=== PATIENT | female | born 1965 | race Caucasian/White ===

== ENCOUNTER 2019-10-01 12:59 | Inpatient (IN) ==
[2019-10-01] MEDS ORDERED: GLUCAGON 1 MG VIAL IM PRN (14:54)
[2019-10-01] MEDS ORDERED: DEXTROSE 10% 250 ML BAG IV PRN ×2 (14:54→20:50)
[2019-10-01] MEDS ORDERED: SODIUM CHLORIDE 0.9% 1,000 ML IV SCH (15:00)
[2019-10-01 15:31] LABS: Basophils # 0.1 10*3/uL (0.0-0.2); Basophils % 1.2 % (0.0-0.8); Eosinophils # 0.1 10*3/uL (0.0-0.87); Hematocrit 37.8 VOL% (35.7-47.0); Hemoglobin 12.7 GM/DL (12.0-16.0); Immature Granulocytes % 0.3 %; Immature Granulocytes Absolute 0.02 #; Lymphocytes # 1.7 10*3/uL (1.4-4.0); Lymphocytes % 29.7 % (21.3-54.2); Mean Corpuscular HGB Conc 33.6 GM/DL (32-36); Mean Corpuscular Volume 99.5 FL (87-102); Mean Platelet Volume 9.6 FL (9.6-12.0); Monocytes % 6.3 % (1.7-12.7); Neutrophils % 61.5 % (38.7-73.9); Platelet Count 185 T/CUMM (130-400); Red Cell Distribution Width 13.2 % (9.3-17.3); White Blood Count 5.8 T/CUMM (4-12)
[2019-10-01 16:01] LABS: Alanine Aminotransferase 29 U/L (13-56); Albumin 2.8 G/DL (3.4-5.0); Alkaline Phosphatase 100 U/L (45-117); Aspartate Amino Transferase 22 U/L (0-37); Bilirubin,Total < 0.39 MG/DL (0.2-1.0); Blood Urea Nitrogen 18 MG/DL (7-18); Calcium 8.3 MG/DL (8.5-10.1); Estimated Glom Filtration Rate 62 ML/MIN; Glucose 253 MG/DL (74-106); Osmolality,Calculated 280.1 MOS/KG (273-304); Total Protein 6.9 G/DL (6.4-8.3)
[2019-10-01 16:05] LABS: ABG Base Excess -1.1 MMOL/L (-2.5-2.5); ABG HCO3 21.2 MMOL/L (20-26); ABG Oxygen Saturation 97.8 % (95-100); ABG PCO2 29.1 MM HG (35-48); ABG PH 7.481 (7.35-7.45); ABG PO2 107.3 MM HG (80-95); ABG TCO2 22.1 MMOL/L (23-27); Allen Test Positive; Pt O2 Delivery Device Room Air
[2019-10-01] MEDS: CHLORHEXIDINE 4% SOLN 118 ML BOTTLE TOP SCH (16:24)
[2019-10-01] MEDS: INSULIN REGULAR 100 UNIT/ML SUBCUT SCH (21:24)
[2019-10-01] MEDS: CHLORHEXIDINE 0.12% ORAL RINSE 60 ML BOTTLE SWISH/SPIT SCH (21:25)
[2019-10-01] MEDS ORDERED: ACETAMINOPHEN/CODEINE 300-30 MG TABLET PO PRN (23:24)
[2019-10-02] MEDS: CHLORHEXIDINE 4% SOLN 118 ML BOTTLE TOP SCH ×4 (00:50→21:19)
[2019-10-02] MEDS: INSULIN REGULAR 100 UNIT/ML SUBCUT SCH ×4 (08:23→21:19)
[2019-10-02] MEDS ORDERED: GABAPENTIN 600 MG TABLET PO PRN (08:25)
[2019-10-02] MEDS: ASPIRIN EC 81 MG TABLET PO SCH (09:17)
[2019-10-02] MEDS: PANTOPRAZOLE 40 MG TABLET PO SCH (09:18)
[2019-10-02] MEDS: CHLORHEXIDINE 0.12% ORAL RINSE 60 ML BOTTLE SWISH/SPIT SCH ×2 (09:18→21:19)
[2019-10-02] MEDS: ISOSORBIDE MONONITRATE 30 MG TABLET PO SCH (09:18)
[2019-10-02] MEDS: oxyCODONE/ACETAMINOPHEN 5-325 MG TABLET PO PRN ×2 (12:25→22:26)
[2019-10-02] MEDS ORDERED: SODIUM CHLORIDE 0.9% 1,000 ML IV SCH (15:00)
[2019-10-03] MEDS ORDERED: VANCOMYCIN 1,000 MG VIAL ONE (04:20)
[2019-10-03] MEDS ORDERED: PAPAVERINE 60 MG/2 ML VIAL ONE (04:20)
[2019-10-03] MEDS ORDERED: VANCOMYCIN 500 MG VIAL ONE (04:20)
[2019-10-03] MEDS ORDERED: HEPARIN/NACL 0.9% 2 UNITS/ML 500 ML IV ONE (05:58)
[2019-10-03] MEDS ORDERED: PANTOPRAZOLE 40 MG TABLET PO ONE (06:00)
[2019-10-03] MEDS ORDERED: CEFUROXIME INJ 1,500 MG in SYRINGE 1 EACH IV ONE (06:00)
[2019-10-03] MEDS ORDERED: DIAZEPAM 5 MG TABLET PO ONE (06:00)
[2019-10-03 07:53] LABS: ABG Base Excess -1.5 MMOL/L (-2.5-2.5); ABG HCO3 23.2 MMOL/L (20-26); ABG Oxygen Saturation 99.6 % (95-100); ABG PCO2 58.3 MM HG (35-48); ABG PH 7.268 (7.35-7.45); ABG TCO2 24.1 MMOL/L (23-27); Glucose Heart Surgery 215 MG/DL (74-106); Hematocrit Heart Surgery 35.9 PERCENT (37-47); Hemoglobin Heart Surgery 11.7 G/DL (12.0-16.0); PCO2 Patient Temp Arterial 58.3 MMHG; PH Patient Temp Arterial 7.268; Patient Temperature 37 CELCIUS; Potassium Heart/CVR 3.7 MMOL/L (3.5-5.1); Sodium Heart/CVR 136 MMOL/L (135-145)
[2019-10-03 07:59] LABS: Apearance,Urine CLEAR (Clear); Bilirubin,Urine Negative (Negative); Blood, Urine Small mg/dL (Negative); Glucose,Urine (UA) Negative (Negative); Ketones,Urine Negative (Negative); Nitrite,Urine Negative (Negative); Protein,Urine Negative; RBC,Urine 1 /HPF (0-4); Squamous Epithelial Cell,Urine Occasional /HPF (0-10); Urine Color Straw (Yellow); Urine Specific Gravity 1.004 (1.001-1.035); Urine Urobilinogen < 2.0 EU/DL (0.2-1.0); WBC,Urine <1 /HPF (0-6)
[2019-10-03] MEDS ORDERED: SUFentanil 50 MCG/ML AMP ONE (08:50)
[2019-10-03 09:21] LABS: Hematocrit Heart Surgery 22.2 PERCENT (37-47); Hemoglobin Heart Surgery 7.1 G/DL (12.0-16.0); PCO2 Patient Temp Venous 36.3 MM HG; PH Patient Temp Venous 7.436; PO2 Patient Temp Venous 34.5 MM HG; VBG Base Excess 0.6 MEQ/L (0-4); VBG HCO3 24.8 MEQ/L (24-28); VBG Oxygen Saturation 79.9 %; VBG PCO2 41.9 MMHG (41-51); VBG PH 7.393; VBG PO2 42.4 MMHG (17-40)
[2019-10-03] MEDS ORDERED: NITROGLYCERIN DRIP 50 MG/250 ML BOTTLE IV ONE ×2 (09:23→12:52)
[2019-10-03] MEDS ORDERED: POTASSIUM CHLORIDE RIDER 100 ML IV ONE (09:23)
[2019-10-03] MEDS ORDERED: SODIUM BICARBONATE 50 MEQ/50 ML VIAL IV ONE ×2 (09:23→11:05)
[2019-10-03] MEDS ORDERED: PHENYLEPHRINE DRIP 40 MG/250 ML PREMIX IV ONE (09:23)
[2019-10-03] MEDS ORDERED: ALBUMIN 5% 12.5 GM/250 ML VIAL IV ONE (09:24)
[2019-10-03 09:54] LABS: Hematocrit Heart Surgery 24.1 PERCENT (37-47); Hemoglobin Heart Surgery 7.7 G/DL (12.0-16.0); PCO2 Patient Temp Venous 34.4 MM HG; PH Patient Temp Venous 7.46; PO2 Patient Temp Venous 36.3 MM HG; Potassium Heart/CVR 4.7 MMOL/L (3.5-5.1); VBG HCO3 25.2 MEQ/L (24-28); VBG Oxygen Saturation 82.5 %; VBG PCO2 39.8 MMHG (41-51); VBG PH 7.416; VBG PO2 44.6 MMHG (17-40)
[2019-10-03] MEDS ORDERED: diphenhydrAMINE 50 MG/1 ML VIAL ONE (10:00)
[2019-10-03] MEDS ORDERED: FAMOTIDINE 20 MG/2 ML VIAL IV ONE (10:01)
[2019-10-03] MEDS ORDERED: EPINEPHrine 1 MG/10 ML SYRINGE ONE (10:08)
[2019-10-03 10:25] LABS: Hematocrit Heart Surgery 25.6 PERCENT (37-47); Hemoglobin Heart Surgery 8.2 G/DL (12.0-16.0); PCO2 Patient Temp Venous 36.8 MM HG; PH Patient Temp Venous 7.428; PO2 Patient Temp Venous 32.3 MM HG; Potassium Heart/CVR 4.6 MMOL/L (3.5-5.1); VBG Base Excess 0.2 MEQ/L (0-4); VBG HCO3 24.2 MEQ/L (24-28); VBG Oxygen Saturation 68.2 %; VBG PCO2 38.6 MMHG (41-51); VBG PH 7.413; VBG PO2 34.7 MMHG (17-40)
[2019-10-03] MEDS ORDERED: THROMBIN TOPICAL (RECOMBINANT) 5,000 UNIT VIAL TOP ONE (10:40)
[2019-10-03] MEDS ORDERED: MANNITOL 100 GM/500 ML BAG IV ONE (11:04)
[2019-10-03] MEDS ORDERED: FUROSEMIDE 20 MG/2 ML VIAL ONE (11:05)
[2019-10-03] MEDS ORDERED: PROTAMINE SULFATE 250 MG/25 ML VIAL IV ONE (11:05)
[2019-10-03] MEDS ORDERED: LIDOCAINE 2% 5 ML VIAL ONE ×2 (11:05→12:50)
[2019-10-03] MEDS ORDERED: MAGNESIUM SULFATE 5 GM/10 ML VIAL IV ONE (11:05)
[2019-10-03] MEDS ORDERED: DEXTROSE 5% KCL 20 MEQ 20 MEQ/1,000 ML BAG IV ONE (11:05)
[2019-10-03] MEDS ORDERED: methylPREDNISolone SOD SUC 1,000 MG/8 ML VIAL ONE (11:05)
[2019-10-03] MEDS ORDERED: HEPARIN 10,000 UNIT/10 ML VIAL ONE (11:05)
[2019-10-03] MEDS ORDERED: ALBUMIN 25% 25 GM/100 ML VIAL IV ONE (11:05)
[2019-10-03 11:14] LABS: ABG HCO3 21.9 MMOL/L (20-26); ABG Oxygen Saturation 99.3 % (95-100); ABG PCO2 44.9 MM HG (35-48); ABG PH 7.319 (7.35-7.45); ABG TCO2 21.5 MMOL/L (23-27); Glucose Heart Surgery 204 MG/DL (74-106); Hematocrit Heart Surgery 27.4 PERCENT (37-47); Hemoglobin Heart Surgery 8.8 G/DL (12.0-16.0); Ionized Calcium Arterial 1.26 MMOL/L (1.21-1.46); PCO2 Patient Temp Arterial 44.9 MMHG; PH Patient Temp Arterial 7.319; Patient Temperature 37 CELCIUS; Potassium Heart/CVR 3.8 MMOL/L (3.5-5.1); Sodium Heart/CVR 133 MMOL/L (135-145)
[2019-10-03] MEDS: ASPIRIN EC 81 MG TABLET PO SCH (11:43)
[2019-10-03] MEDS: CHLORHEXIDINE 4% SOLN 118 ML BOTTLE TOP SCH (11:43)
[2019-10-03] MEDS: INSULIN REGULAR 100 UNIT/ML SUBCUT SCH (11:43)
[2019-10-03] MEDS: PANTOPRAZOLE 40 MG TABLET PO SCH (11:44)
[2019-10-03] MEDS: ISOSORBIDE MONONITRATE 30 MG TABLET PO SCH (11:44)
[2019-10-03] MEDS: CHLORHEXIDINE 0.12% ORAL RINSE 60 ML BOTTLE SWISH/SPIT SCH ×2 (11:44→21:17)
[2019-10-03] MEDS ORDERED: ONDANSETRON 4 MG/2 ML VIAL IV PRN (12:24)
[2019-10-03] MEDS ORDERED: CALCIUM CHLORIDE 1,000 MG/10 ML SYRINGE IV PRN (12:24)
[2019-10-03] MEDS ORDERED: INSULIN REGULAR 100 UNIT/ML IV PRN (12:24)
[2019-10-03] MEDS ORDERED: MAGNESIUM SULF RIDER 4 GM in PREMIX 1 EACH IV PRN (12:24)
[2019-10-03] MEDS ORDERED: ACETAMINOPHEN 650 MG SUPP RECTAL PRN (12:24)
[2019-10-03] MEDS ORDERED: NITROPRUSSIDE 100 MG in DEXTROSE 5% 250 ML IV PRN (12:24)
[2019-10-03] MEDS ORDERED: MIDAZOLAM 10 MG/2 ML VIAL IV PRN (12:24)
[2019-10-03] MEDS ORDERED: CHLORHEXIDINE 4% SOLN 118 ML BOTTLE TOP PRN (12:24)
[2019-10-03] MEDS ORDERED: VECURONIUM 10 MG VIAL IV PRN ×2 (12:24)
[2019-10-03] MEDS ORDERED: INSULIN REGULAR 100 UNIT/ML IV ONE (12:24)
[2019-10-03] MEDS ORDERED: MAGNESIUM SULF RIDER 2 GM in PREMIX 1 EACH IV PRN (12:24)
[2019-10-03] MEDS ORDERED: MORPHINE 10 MG/1 ML VIAL IV PRN (12:24)
[2019-10-03] MEDS ORDERED: PROTAMINE SULFATE 50 MG/5 ML VIAL IV ONE (12:27)
[2019-10-03 12:40] LABS: ABG Base Excess 0.2 MMOL/L (-2.5-2.5); ABG HCO3 24.6 MMOL/L (20-26); ABG Oxygen Saturation 99.1 % (95-100); ABG PCO2 51.4 MM HG (35-48); ABG PH 7.324 (7.35-7.45); ABG TCO2 24.8 MMOL/L (23-27); Glucose Heart Surgery 188 MG/DL (74-106); Hematocrit Heart Surgery 27.8 PERCENT (37-47); Potassium Heart/CVR 3.6 MMOL/L (3.5-5.1)
[2019-10-03 12:42] LABS: Basophils % 0.6 % (0.0-0.8); Eosinophils # 0.1 10*3/uL (0.0-0.87); Eosinophils % 1.1 % (0.00-10.9); Hemoglobin 8.7 GM/DL (12.0-16.0); Immature Granulocytes % 0.9 %; Immature Granulocytes Absolute 0.06 #; Lymphocytes # 1.1 10*3/uL (1.4-4.0); Lymphocytes % 15.2 % (21.3-54.2); Mean Corpuscular HGB Conc 33.5 GM/DL (32-36); Mean Corpuscular Volume 99.2 FL (87-102); Mean Platelet Volume 9.6 FL (9.6-12.0); Monocytes % 4.5 % (1.7-12.7); Neutrophils % 77.7 % (38.7-73.9); Platelet Count 119 T/CUMM (130-400); Red Blood Count 2.62 MC/CUMM (3.8-5.5); Red Cell Distribution Width 13.2 % (9.3-17.3); White Blood Count 7.1 T/CUMM (4-12)
[2019-10-03] MEDS ORDERED: CALCIUM CHLORIDE 1,000 MG/10 ML VIAL IV ONE (12:50)
[2019-10-03] MEDS ORDERED: PHENYLEPHRINE DRIP 20 MG/250 ML PREMIX IV ONE (12:50)
[2019-10-03] MEDS ORDERED: SEVOFLURANE 1 UNIT/15 MINUTE INH ONE (12:50)
[2019-10-03] MEDS ORDERED: ePHEDrine 50 MG/ML AMP ONE (12:51)
[2019-10-03] MEDS ORDERED: SUFentanil 250 MCG/5 ML AMP ONE (12:51)
[2019-10-03] MEDS ORDERED: ETOMIDATE 40 MG/20 ML VIAL IV ONE (12:52)
[2019-10-03] MEDS ORDERED: SODIUM CHLORIDE 0.9% 250 ML IV ONE (12:52)
[2019-10-03] MEDS ORDERED: SODIUM CHLORIDE 0.9% 100 ML IV ONE (12:52)
[2019-10-03] MEDS ORDERED: SODIUM CHLORIDE 0.9% 2,000 ML IV ONE (12:52)
[2019-10-03] MEDS ORDERED: AMINOCAPROIC ACID 5,000 MG/20 ML VIAL ONE (12:52)
[2019-10-03] MEDS ORDERED: DEXTROSE 10% 250 ML BAG IV PRN ×2 (12:53)
[2019-10-03] MEDS: SODIUM CHLORIDE 0.45% 1,000 ML IV SCH ×2 (12:57→13:06)
[2019-10-03] MEDS: PHENYLEPHRINE DRIP 40 MG/250 ML PREMIX IV PRN (12:59)
[2019-10-03] MEDS: POTASSIUM CHLORIDE RIDER 20 MEQ in PREMIX 1 EACH IV PRN ×2 (12:59→14:29)
[2019-10-03 13:07] LABS: INR 1.3; Partial Thromboplastin Time 28.9 SECS (20.8-36.0)
[2019-10-03 13:13] LABS: CKMB % 7.1 %
[2019-10-03] MEDS: ALBUMIN 5% 12.5 GM in PREMIX 1 EACH IV PRN ×4 (13:14→18:59)
[2019-10-03] MEDS: LACTATED RINGERS 250 ML IV PRN ×5 (13:15→17:17)
[2019-10-03 13:16] LABS: Troponin I 4.56 NG/ML (0.00-0.045)
[2019-10-03 13:18] LABS: Albumin 2.4 G/DL (3.4-5.0); Bilirubin,Total 1.2 MG/DL (0.2-1.0); Calcium 7.7 MG/DL (8.5-10.1); Osmolality,Calculated 288.1 MOS/KG (273-304); Total Protein 5.1 G/DL (6.4-8.3)
[2019-10-03] MEDS: INSULIN REGULAR DRIP 100 ML IV SCH (13:20)
[2019-10-03] MEDS: POTASSIUM CHLORIDE RIDER 10 MEQ in PREMIX 1 EACH IV PRN ×2 (13:21→15:14)
[2019-10-03 14:20] LABS: ABG Base Excess -1.9 MMOL/L (-2.5-2.5); ABG HCO3 22.8 MMOL/L (20-26); ABG Oxygen Saturation 99.2 % (95-100); ABG PCO2 42.5 MM HG (35-48); ABG PH 7.352 (7.35-7.45); Glucose Heart Surgery 193 MG/DL (74-106); Hematocrit Heart Surgery 26.1 PERCENT (37-47); Hemoglobin Heart Surgery 8.4 G/DL (12.0-16.0); Potassium Heart/CVR 3.8 MMOL/L (3.5-5.1)
[2019-10-03 15:48] LABS: ABG Base Excess -2.7 MMOL/L (-2.5-2.5); ABG HCO3 22.2 MMOL/L (20-26); ABG Oxygen Saturation 99.2 % (95-100); ABG PCO2 41.8 MM HG (35-48); ABG PH 7.346 (7.35-7.45); Glucose Heart Surgery 167 MG/DL (74-106); Hematocrit Heart Surgery 29.9 PERCENT (37-47); Hemoglobin Heart Surgery 9.7 G/DL (12.0-16.0); Potassium Heart/CVR 4.5 MMOL/L (3.5-5.1)
[2019-10-03] MEDS: MIDAZOLAM 2 MG/2 ML VIAL IV PRN ×2 (15:57→16:23)
[2019-10-03 17:46] LABS: ABG Base Excess -1.2 MMOL/L (-2.5-2.5); ABG HCO3 23.4 MMOL/L (20-26); ABG PCO2 44.5 MM HG (35-48); ABG PO2 87.5 MM HG (80-95); ABG TCO2 22.2 MMOL/L (23-27); Glucose Heart Surgery 152 MG/DL (74-106); Hematocrit Heart Surgery 34.6 PERCENT (37-47); Hemoglobin Heart Surgery 11.2 G/DL (12.0-16.0); Potassium Heart/CVR 4.3 MMOL/L (3.5-5.1)
[2019-10-03] MEDS: KETOROLAC 30 MG/1 ML VIAL IV SCH (20:27)
[2019-10-03 20:29] LABS: ABG Base Excess -1.1 MMOL/L (-2.5-2.5); ABG HCO3 23.5 MMOL/L (20-26); ABG Oxygen Saturation 97.4 % (95-100); ABG PCO2 38.9 MM HG (35-48); ABG PH 7.392 (7.35-7.45); ABG PO2 89.3 MM HG (80-95); ABG TCO2 21.2 MMOL/L (23-27); Glucose Heart Surgery 147 MG/DL (74-106); Hematocrit Heart Surgery 33.8 PERCENT (37-47); Hemoglobin Heart Surgery 10.9 G/DL (12.0-16.0); Potassium Heart/CVR 4.2 MMOL/L (3.5-5.1)
[2019-10-03] MEDS: CEFUROXIME INJ 1,500 MG in SYRINGE 1 EACH IV SCH (20:36)
[2019-10-03 21:25] LABS: CKMB % 4.8 %
[2019-10-04 00:16] LABS: ABG Base Excess -1.6 MMOL/L (-2.5-2.5); ABG HCO3 22.3 MMOL/L (20-26); ABG PH 7.423 (7.35-7.45); ABG TCO2 23.4 MMOL/L (23-27); Glucose Heart Surgery 144 MG/DL (74-106); Potassium Heart/CVR 4.4 MMOL/L (3.5-5.1)
[2019-10-04] MEDS: FUROSEMIDE 40 MG/4 ML VIAL IV PRN ×2 (01:11→07:55)
[2019-10-04] MEDS: KETOROLAC 30 MG/1 ML VIAL IV SCH ×3 (01:23→13:32)
[2019-10-04] MEDS: ALBUMIN 5% 12.5 GM in PREMIX 1 EACH IV PRN ×5 (02:00→17:15)
[2019-10-04 03:21] LABS: ABG Base Excess -1.1 MMOL/L (-2.5-2.5); ABG HCO3 23.5 MMOL/L (20-26); ABG Oxygen Saturation 95.8 % (95-100); ABG PCO2 36.4 MM HG (35-48); ABG PH 7.412 (7.35-7.45); ABG PO2 75.3 MM HG (80-95); ABG TCO2 21.4 MMOL/L (23-27); Glucose Heart Surgery 177 MG/DL (74-106); Hematocrit Heart Surgery 27.5 PERCENT (37-47); Hemoglobin Heart Surgery 8.9 G/DL (12.0-16.0); Potassium Heart/CVR 4.1 MMOL/L (3.5-5.1)
[2019-10-04 06:11] LABS: Basophils % 0.1 % (0.0-0.8); Hematocrit 27.2 VOL% (35.7-47.0); Hemoglobin 9.2 GM/DL (12.0-16.0); Immature Granulocytes % 0.7 %; Immature Granulocytes Absolute 0.11 #; Lymphocytes # 1.9 10*3/uL (1.4-4.0); Lymphocytes % 12.7 % (21.3-54.2); Mean Corpuscular HGB Conc 33.8 GM/DL (32-36); Mean Corpuscular Volume 94.1 FL (87-102); Mean Platelet Volume 10.4 FL (9.6-12.0); Monocytes % 6.5 % (1.7-12.7); Platelet Count 134 T/CUMM (130-400); Red Blood Count 2.89 MC/CUMM (3.8-5.5); Red Cell Distribution Width 15.2 % (9.3-17.3); White Blood Count 14.7 T/CUMM (4-12)
[2019-10-04 06:44] LABS: Bilirubin,Direct 0.23 MG/DL (0.0-0.20); Bilirubin,Total 0.7 MG/DL (0.2-1.0); Calcium 7.3 MG/DL (8.5-10.1); Total Protein 4.8 G/DL (6.4-8.3)
[2019-10-04 06:47] LABS: CKMB % 2.8 %
[2019-10-04 06:50] LABS: Troponin I 3.55 NG/ML (0.00-0.045)
[2019-10-04] MEDS: MORPHINE 4 MG/1 ML VIAL IV PRN ×2 (07:09→17:37)
[2019-10-04] MEDS ORDERED: HEPARIN/NACL 0.9% 2 UNITS/ML 500 ML IV ONE (07:32)
[2019-10-04 07:33] LABS: ABG Base Excess -5.5 MMOL/L (-2.5-2.5); ABG HCO3 19.1 MMOL/L (20-26); ABG Oxygen Saturation 98.2 % (95-100); ABG PCO2 33.6 MM HG (35-48); ABG PH 7.372 (7.35-7.45); ABG PO2 164.1 MM HG (80-95); ABG TCO2 20.1 MMOL/L (23-27); Glucose Heart Surgery 185 MG/DL (74-106); Hemoglobin Heart Surgery 8.3 G/DL (12.0-16.0); Potassium Heart/CVR 4.8 MMOL/L (3.5-5.1)
[2019-10-04] MEDS: MIDAZOLAM 2 MG/2 ML VIAL IV PRN ×4 (07:37→15:24)
[2019-10-04 08:20] LABS: ABG Base Excess -4.5 MMOL/L (-2.5-2.5); ABG HCO3 20.4 MMOL/L (20-26); ABG PCO2 36.4 MM HG (35-48); ABG PH 7.367 (7.35-7.45); ABG PO2 81.7 MM HG (80-95); ABG TCO2 21.5 MMOL/L (23-27); Glucose Heart Surgery 182 MG/DL (74-106); Hemoglobin Heart Surgery 7.7 G/DL (12.0-16.0); Potassium Heart/CVR 4.6 MMOL/L (3.5-5.1)
[2019-10-04 08:50] LABS: Hemoglobin Heart Surgery 7.7 G/DL (12.0-16.0); PH Patient Temp Venous 7.253; PO2 Patient Temp Venous 25.4 MM HG; Potassium Heart/CVR 4.6 MMOL/L (3.5-5.1); VBG Base Excess -5.7 MEQ/L (0-4); VBG HCO3 21.2 MEQ/L (24-28); VBG Oxygen Saturation 34.3 %; VBG PH 7.253; VBG PO2 25.4 MMHG (17-40)
[2019-10-04] MEDS: LACTATED RINGERS 250 ML IV PRN ×4 (09:10→15:36)
[2019-10-04] MEDS: PHENYLEPHRINE DRIP 40 MG/250 ML PREMIX IV PRN (09:10)
[2019-10-04] MEDS: CEFUROXIME INJ 1,500 MG in SYRINGE 1 EACH IV SCH ×2 (09:27→21:04)
[2019-10-04] MEDS ORDERED: MIDAZOLAM 10 MG/2 ML VIAL ONE (09:37)
[2019-10-04] MEDS ORDERED: SUFentanil 250 MCG/5 ML AMP ONE (09:37)
[2019-10-04] MEDS ORDERED: VECURONIUM 10 MG VIAL IV ONE (09:37)
[2019-10-04] MEDS ORDERED: PAPAVERINE 60 MG/2 ML VIAL ONE (09:38)
[2019-10-04] MEDS ORDERED: VANCOMYCIN 1,000 MG VIAL ONE (09:38)
[2019-10-04] MEDS: CHLORHEXIDINE 0.12% ORAL RINSE 60 ML BOTTLE SWISH/SPIT SCH ×2 (10:09→20:59)
[2019-10-04 11:46] LABS: ABG Base Excess -5.1 MMOL/L (-2.5-2.5); ABG HCO3 20.2 MMOL/L (20-26); ABG PCO2 38.4 MM HG (35-48); ABG PH 7.332 (7.35-7.45); Glucose Heart Surgery 172 MG/DL (74-106); Hematocrit Heart Surgery 26.2 PERCENT (37-47); Hemoglobin Heart Surgery 8.4 G/DL (12.0-16.0); Potassium Heart/CVR 4.5 MMOL/L (3.5-5.1)
[2019-10-04] MEDS: SODIUM CHLORIDE 0.45% 1,000 ML IV SCH ×3 (13:17→16:48)
[2019-10-04] MEDS ORDERED: SEVOFLURANE 1 UNIT/15 MINUTE INH ONE (13:56)
[2019-10-04] MEDS ORDERED: ePHEDrine 50 MG/ML AMP ONE (13:56)
[2019-10-04] MEDS ORDERED: NITROGLYCERIN DRIP 50 MG/250 ML BOTTLE IV ONE (13:57)
[2019-10-04 14:06] LABS: CKMB % 2.9 %
[2019-10-04 14:07] LABS: Troponin I 3.11 NG/ML (0.00-0.045)
[2019-10-04 14:29] LABS: ABG Base Excess -3.7 MMOL/L (-2.5-2.5); ABG HCO3 21.3 MMOL/L (20-26); ABG Oxygen Saturation 97.6 % (95-100); ABG PCO2 42.9 MM HG (35-48); ABG PH 7.323 (7.35-7.45); ABG TCO2 20.3 MMOL/L (23-27); Glucose Heart Surgery 131 MG/DL (74-106); Hematocrit Heart Surgery 32.2 PERCENT (37-47); Hemoglobin Heart Surgery 10.4 G/DL (12.0-16.0); Potassium Heart/CVR 4.1 MMOL/L (3.5-5.1)
[2019-10-04] MEDS: POTASSIUM CHLORIDE RIDER 20 MEQ in PREMIX 1 EACH IV PRN (14:55)
[2019-10-04] MEDS ORDERED: FUROSEMIDE 40 MG/4 ML VIAL IV ONE (16:31)
[2019-10-04] MEDS: INSULIN REGULAR DRIP 100 ML IV SCH (16:32)
[2019-10-04 17:16] LABS: ABG Base Excess -2.8 MMOL/L (-2.5-2.5); ABG HCO3 22.1 MMOL/L (20-26); ABG Oxygen Saturation 99.7 % (95-100); ABG TCO2 20.6 MMOL/L (23-27); Glucose Heart Surgery 113 MG/DL (74-106); Hematocrit Heart Surgery 32.2 PERCENT (37-47); Hemoglobin Heart Surgery 10.4 G/DL (12.0-16.0); Potassium Heart/CVR 4.5 MMOL/L (3.5-5.1)
[2019-10-04] MEDS ORDERED: GLUCAGON 1 MG VIAL IM PRN (20:00)
[2019-10-04] MEDS ORDERED: DEXTROSE 50% 25 GM/50 ML SYRINGE IV PRN (20:00)
[2019-10-04 20:10] LABS: ABG Base Excess -0.8 MMOL/L (-2.5-2.5); ABG HCO3 23.6 MMOL/L (20-26); ABG PCO2 38.3 MM HG (35-48); ABG PH 7.408 (7.35-7.45); ABG PO2 84.9 MM HG (80-95); ABG TCO2 24.8 MMOL/L (23-27); Glucose Heart Surgery 120 MG/DL (74-106); Hemoglobin Heart Surgery 10.5 G/DL (12.0-16.0)
[2019-10-04] MEDS: INSULIN REGULAR 100 UNIT/ML SUBCUT SCH (20:17)
[2019-10-04] MEDS: VANCOMYCIN INJ 1,000 MG in SODIUM CHLORIDE 0.9% 250 ML IV SCH (20:26)
[2019-10-05] MEDS: INSULIN REGULAR 100 UNIT/ML SUBCUT SCH ×6 (00:26→21:59)
[2019-10-05] MEDS: MORPHINE 4 MG/1 ML VIAL IV PRN (01:21)
[2019-10-05 04:42] LABS: ABG Base Excess -1.7 MMOL/L (-2.5-2.5); ABG HCO3 22.9 MMOL/L (20-26); ABG Oxygen Saturation 95.1 % (95-100); ABG PCO2 45.4 MM HG (35-48); ABG PH 7.337 (7.35-7.45); ABG PO2 80.5 MM HG (80-95); ABG TCO2 21.9 MMOL/L (23-27); Glucose Heart Surgery 197 MG/DL (74-106); Hematocrit Heart Surgery 34.5 PERCENT (37-47); Hemoglobin Heart Surgery 11.2 G/DL (12.0-16.0); Potassium Heart/CVR 4.2 MMOL/L (3.5-5.1)
[2019-10-05 05:21] LABS: Basophils # 0.1 10*3/uL (0.0-0.2); Basophils % 0.7 % (0.0-0.8); Eosinophils % 0.4 % (0.00-10.9); Hematocrit 31.5 VOL% (35.7-47.0); Hemoglobin 10.7 GM/DL (12.0-16.0); Immature Granulocytes % 0.5 %; Immature Granulocytes Absolute 0.04 #; Lymphocytes # 1.7 10*3/uL (1.4-4.0); Mean Corpuscular Volume 88.2 FL (87-102); Mean Platelet Volume 11.1 FL (9.6-12.0); Monocytes % 10.2 % (1.7-12.7); Neutrophils % 66.2 % (38.7-73.9); Platelet Count 64 T/CUMM (130-400); Red Blood Count 3.57 MC/CUMM (3.8-5.5); Red Cell Distribution Width 17.2 % (9.3-17.3); White Blood Count 7.6 T/CUMM (4-12)
[2019-10-05] MEDS ORDERED: FUROSEMIDE 40 MG/4 ML VIAL IV ONE (05:24)
[2019-10-05] MEDS ORDERED: FUROSEMIDE 40 MG/4 ML VIAL ONE (05:26)
[2019-10-05 05:45] LABS: ABG Base Excess -1.6 MMOL/L (-2.5-2.5); ABG HCO3 23.1 MMOL/L (20-26); ABG Oxygen Saturation 95.2 % (95-100); ABG PCO2 46.4 MM HG (35-48); ABG PH 7.332 (7.35-7.45); ABG PO2 81.2 MM HG (80-95); ABG TCO2 22.3 MMOL/L (23-27); Glucose Heart Surgery 219 MG/DL (74-106); Potassium Heart/CVR 4.1 MMOL/L (3.5-5.1)
[2019-10-05 05:57] LABS: Platelet Estimate Decreased
[2019-10-05 05:58] LABS: Albumin 3.2 G/DL (3.4-5.0); Bilirubin,Direct 0.14 MG/DL (0.0-0.20); Bilirubin,Total 0.5 MG/DL (0.2-1.0); Calcium 7.5 MG/DL (8.5-10.1); Osmolality,Calculated 286.4 MOS/KG (273-304); Total Protein 5.3 G/DL (6.4-8.3)
[2019-10-05] MEDS ORDERED: KETOROLAC 30 MG/1 ML VIAL IV PRN (06:02)
[2019-10-05] MEDS: oxyCODONE/ACETAMINOPHEN 5-325 MG TABLET PO PRN ×3 (07:11→23:14)
[2019-10-05] MEDS: VANCOMYCIN INJ 1,000 MG in SODIUM CHLORIDE 0.9% 250 ML IV SCH ×2 (07:12→21:53)
[2019-10-05] MEDS: CHLORHEXIDINE 0.12% ORAL RINSE 60 ML BOTTLE SWISH/SPIT SCH ×2 (08:52→22:01)
[2019-10-05] MEDS ORDERED: ACETAMINOPHEN 325 MG TABLET PO PRN (09:02)
[2019-10-05] MEDS: PANTOPRAZOLE 40 MG TABLET PO SCH (09:20)
[2019-10-05] MEDS: SODIUM CHLOR 0.45% KCL 20 MEQ 20 MEQ/1,000 ML BAG IV SCH (10:07)
[2019-10-06] MEDS: INSULIN REGULAR 100 UNIT/ML SUBCUT SCH ×4 (01:04→11:48)
[2019-10-06 05:36] LABS: Basophils % 0.6 % (0.0-0.8); Eosinophils % 0.6 % (0.00-10.9); Hematocrit 30.1 VOL% (35.7-47.0); Immature Granulocytes % 0.4 %; Immature Granulocytes Absolute 0.03 #; Lymphocytes # 1.2 10*3/uL (1.4-4.0); Lymphocytes % 17.3 % (21.3-54.2); Mean Corpuscular HGB Conc 33.2 GM/DL (32-36); Mean Corpuscular Volume 90.9 FL (87-102); Mean Platelet Volume 10.5 FL (9.6-12.0); Monocytes % 9.3 % (1.7-12.7); Neutrophils % 71.8 % (38.7-73.9); Platelet Count 75 T/CUMM (130-400); Red Blood Count 3.31 MC/CUMM (3.8-5.5); Red Cell Distribution Width 16.4 % (9.3-17.3); White Blood Count 6.8 T/CUMM (4-12)
[2019-10-06 06:20] LABS: Albumin 2.7 G/DL (3.4-5.0); Bilirubin,Direct 0.21 MG/DL (0.0-0.20); Bilirubin,Total 1.3 MG/DL (0.2-1.0); Calcium 7.8 MG/DL (8.5-10.1); Osmolality,Calculated 279.4 MOS/KG (273-304); Total Protein 5.3 G/DL (6.4-8.3)
[2019-10-06] MEDS: oxyCODONE/ACETAMINOPHEN 5-325 MG TABLET PO PRN ×2 (07:40→23:48)
[2019-10-06] MEDS: CHLORHEXIDINE 0.12% ORAL RINSE 60 ML BOTTLE SWISH/SPIT SCH ×2 (08:23→20:56)
[2019-10-06] MEDS: PANTOPRAZOLE 40 MG TABLET PO SCH (08:23)
[2019-10-06] MEDS: POTASSIUM CHLORIDE RIDER 20 MEQ in PREMIX 1 EACH IV PRN (08:25)
[2019-10-06] MEDS: SODIUM CHLOR 0.45% KCL 20 MEQ 20 MEQ/1,000 ML BAG IV SCH (09:52)
[2019-10-06] MEDS: VANCOMYCIN INJ 1,000 MG in SODIUM CHLORIDE 0.9% 250 ML IV SCH (09:59)
[2019-10-06] MEDS: NEBIVOLOL 5 MG TABLET PO SCH (10:55)
[2019-10-06] MEDS ORDERED: MAGNESIUM SULF RIDER 4 GM in PREMIX 1 EACH IV PRN (13:03)
[2019-10-06] MEDS ORDERED: ZALEPLON 5 MG CAPSULE PO PRN (13:03)
[2019-10-06] MEDS ORDERED: SODIUM CHLOR 0.45% KCL 20 MEQ 20 MEQ/1,000 ML BAG IV SCH (13:03)
[2019-10-06] MEDS ORDERED: MAGNESIUM HYDROXIDE SUSP 30 ML UDCUP PO PRN (13:03)
[2019-10-06] MEDS ORDERED: GLUCAGON 1 MG VIAL IM PRN ×2 (13:03)
[2019-10-06] MEDS ORDERED: ACETAMINOPHEN 325 MG TABLET PO PRN (13:03)
[2019-10-06] MEDS ORDERED: DEXTROSE 50% 25 GM/50 ML VIAL IV PRN ×2 (13:03)
[2019-10-06] MEDS ORDERED: KETOROLAC 30 MG/1 ML VIAL IM PRN (13:03)
[2019-10-06] MEDS ORDERED: MAGNESIUM SULF RIDER 2 GM in PREMIX 1 EACH IV PRN (13:03)
[2019-10-06] MEDS ORDERED: POTASSIUM CHLORIDE 20 MEQ TABLET PO PRN (13:03)
[2019-10-06] MEDS ORDERED: ALUMINUM/MAGNES/SIMETH MAX STR 30 ML UDCUP PO PRN (13:03)
[2019-10-06] MEDS ORDERED: ONDANSETRON 4 MG/2 ML VIAL IV PRN (13:03)
[2019-10-06] MEDS: metFORMIN 500 MG TABLET PO SCH (20:56)
[2019-10-07 05:23] LABS: Basophils % 0.1 % (0.0-0.8); Eosinophils % 0.1 % (0.00-10.9); Hematocrit 32.5 VOL% (35.7-47.0); Hemoglobin 10.6 GM/DL (12.0-16.0); Immature Granulocytes % 0.9 %; Immature Granulocytes Absolute 0.07 #; Lymphocytes # 1.3 10*3/uL (1.4-4.0); Lymphocytes % 16.8 % (21.3-54.2); Mean Corpuscular HGB Conc 32.6 GM/DL (32-36); Mean Corpuscular Volume 91.8 FL (87-102); Mean Platelet Volume 10.4 FL (9.6-12.0); Monocytes % 7.8 % (1.7-12.7); Neutrophils % 74.3 % (38.7-73.9); Platelet Count 115 T/CUMM (130-400); Red Blood Count 3.54 MC/CUMM (3.8-5.5); Red Cell Distribution Width 15.2 % (9.3-17.3); White Blood Count 7.8 T/CUMM (4-12)
[2019-10-07 05:44] LABS: Alanine Aminotransferase 69 U/L (13-56); Albumin 2.4 G/DL (3.4-5.0); Alkaline Phosphatase 81 U/L (45-117); Aspartate Amino Transferase 34 U/L (0-37); Bilirubin,Indirect 0.4 MG/DL (0.0-1.0); Blood Urea Nitrogen 14 MG/DL (7-18); Calcium 8.1 MG/DL (8.5-10.1); Estimated Glom Filtration Rate 85 ML/MIN; Glucose 258 MG/DL (74-106); Osmolality,Calculated 288.4 MOS/KG (273-304); Total Protein 5.7 G/DL (6.4-8.3)
[2019-10-07] MEDS ORDERED: FUROSEMIDE 40 MG/4 ML VIAL IV ONE (06:00)
[2019-10-07] MEDS: NEBIVOLOL 5 MG TABLET PO SCH (09:30)
[2019-10-07] MEDS: ASPIRIN EC 81 MG TABLET PO SCH (09:30)
[2019-10-07] MEDS: DOCUSATE SODIUM 100 MG CAPSULE PO SCH (09:30)
[2019-10-07] MEDS: oxyCODONE/ACETAMINOPHEN 5-325 MG TABLET PO PRN (09:30)
[2019-10-07] MEDS: FERROUS SULFATE 325 MG TABLET PO SCH (09:30)
[2019-10-07] MEDS: metFORMIN 500 MG TABLET PO SCH ×2 (09:30→20:45)
[2019-10-07] MEDS: CHLORHEXIDINE 0.12% ORAL RINSE 60 ML BOTTLE SWISH/SPIT SCH ×2 (09:31→20:46)
[2019-10-07] MEDS ORDERED: NEBIVOLOL 5 MG TABLET PO SCH (11:13)
[2019-10-08] MEDS: oxyCODONE/ACETAMINOPHEN 5-325 MG TABLET PO PRN ×3 (00:22→23:52)
[2019-10-08 05:21] LABS: Basophils # 0.1 10*3/uL (0.0-0.2); Basophils % 0.7 % (0.0-0.8); Eosinophils # 0.3 10*3/uL (0.0-0.87); Eosinophils % 4.2 % (0.00-10.9); Hematocrit 32.9 VOL% (35.7-47.0); Hemoglobin 10.7 GM/DL (12.0-16.0); Immature Granulocytes % 1.2 %; Immature Granulocytes Absolute 0.08 #; Lymphocytes # 1.9 10*3/uL (1.4-4.0); Lymphocytes % 27.9 % (21.3-54.2); Mean Corpuscular HGB Conc 32.5 GM/DL (32-36); Mean Corpuscular Volume 92.7 FL (87-102); Mean Platelet Volume 10.4 FL (9.6-12.0); Monocytes % 11.3 % (1.7-12.7); Neutrophils % 54.7 % (38.7-73.9); Platelet Count 147 T/CUMM (130-400); Red Blood Count 3.55 MC/CUMM (3.8-5.5); Red Cell Distribution Width 14.6 % (9.3-17.3); White Blood Count 6.7 T/CUMM (4-12)
[2019-10-08 05:46] LABS: Albumin 2.5 G/DL (3.4-5.0); Bilirubin,Direct 0.13 MG/DL (0.0-0.20); Bilirubin,Indirect 0.6 MG/DL (0.0-1.0); Bilirubin,Total 0.7 MG/DL (0.2-1.0); CKMB % 1.4 %; Calcium 8.4 MG/DL (8.5-10.1); Osmolality,Calculated 282.8 MOS/KG (273-304); Total Protein 5.7 G/DL (6.4-8.3)
[2019-10-08 05:49] LABS: Troponin I 1.07 NG/ML (0.00-0.045)
[2019-10-08] MEDS: CHLORHEXIDINE 0.12% ORAL RINSE 60 ML BOTTLE SWISH/SPIT SCH ×2 (10:03→23:52)
[2019-10-08] MEDS: ASPIRIN EC 81 MG TABLET PO SCH (10:04)
[2019-10-08] MEDS: FERROUS SULFATE 325 MG TABLET PO SCH (10:04)
[2019-10-08] MEDS: lisinopriL 5 MG TABLET PO SCH (10:04)
[2019-10-08] MEDS: NEBIVOLOL 5 MG TABLET PO SCH (10:04)
[2019-10-08] MEDS: DOCUSATE SODIUM 100 MG CAPSULE PO SCH (10:04)
[2019-10-08] MEDS: metFORMIN 500 MG TABLET PO SCH ×2 (10:04→23:36)
[2019-10-08] MEDS: INSULIN LISPRO 100 UNIT/ML SUBCUT SCH ×3 (15:00→23:51)
[2019-10-08] MEDS ORDERED: SIMVASTATIN 10 MG TABLET PO SCH (21:00)
[2019-10-08] MEDS ORDERED: INSULIN GLARGINE 100 UNIT/ML SUBCUT SCH (21:00)
[2019-10-09] MEDS ORDERED: LEVOTHYROXINE 150 MCG TABLET PO SCH (06:30)
[2019-10-09 08:41] VITALS: BP 125/62
[2019-10-09] MEDS: INSULIN LISPRO 100 UNIT/ML SUBCUT SCH (09:38)
[2019-10-09] MEDS: DOCUSATE SODIUM 100 MG CAPSULE PO SCH (09:40)
[2019-10-09] MEDS: ASPIRIN EC 81 MG TABLET PO SCH (09:40)
[2019-10-09] MEDS: metFORMIN 500 MG TABLET PO SCH (09:40)
[2019-10-09] MEDS: lisinopriL 5 MG TABLET PO SCH (09:40)
[2019-10-09] MEDS: CHLORHEXIDINE 0.12% ORAL RINSE 60 ML BOTTLE SWISH/SPIT SCH (09:40)
[2019-10-09] MEDS: FERROUS SULFATE 325 MG TABLET PO SCH (09:40)
[2019-10-09] MEDS: NEBIVOLOL 5 MG TABLET PO SCH (09:40)
== END 2019-10-09 11:50 | disposition home health service (06) | DRG 236 ==
LOC: N.TELEN 14:49 → N.CVR 10-03 11:55 → N.ICU 10-05 09:00 → N.TELES 10-06 15:39